=== PATIENT | male | born 1980 | race Two or more races ===

== ENCOUNTER 2016-11-28 02:48 | Emergency (ER) | payer SELFPAY ==
[~2016-11-28] VITALS: Ht 188 cm; Wt 97.1 kg
--- NOTE | 2016-11-28 02:53 | PHYS DOC ---
Adult General Chief Complaint Chief Complaint: EYE PROBLEMS HPI HPI Patient is a 36 year old male who presents with left eye pain. He states it started on Sunday since been getting worse. He states he can see light and shapes but can't see fine detail. He denies any trauma to the eye. He does have a mild headache. He states earlier today after his nap his pain got worse and now an 8 out of 10. Review of Systems Review of Systems Constitutional: Denies fever or chills [] Eyes: Positive for change in visual acuity, redness, and eye pain and left eye HENT: Denies nasal congestion or sore throat [] Respiratory: Denies cough or shortness of breath [] Cardiovascular: No additional information not addressed in HPI [] GI: Denies abdominal pain, nausea, vomiting, bloody stools or diarrhea [] : Denies dysuria or hematuria [] Musculoskeletal: Denies back pain or joint pain [] Integument: Denies rash or skin lesions [] Neurologic: Denies headache, focal weakness or sensory changes [] Endocrine: Denies polyuria or polydipsia [] Current Medications Current Medications Current Medications Medications (Trade) Dose Ordered Sig/Xavier Start Time Stop Time Status Last Admin Dose Admin Acetaminophen/ Hydrocodone Bitart (Lortab 5/325) 2 tab 1X ONCE 11/28/16 03:45 11/28/16 03:46 UNV Fluorescein Sodium (Ful-Renay) 1 strip 1X ONCE 11/28/16 03:15 11/28/16 03:21 DC 11/28/16 03:12 1 STRIP Tetracaine HCl (Tetracaine) 1 drop 1X ONCE 11/28/16 03:15 11/28/16 03:21 DC 11/28/16 03:12 1 DROP Allergies Allergies Allergies Coded Allergies Type Severity Reaction Last Updated Verified Unable to Assess 11/28/16 No Physical Exam Physical Exam Constitutional: Well developed, well nourished, no acute distress, non-toxic appearance. [] HENT: Normocephalic, atraumatic, bilateral external ears normal, oropharynx moist, no oral exudates, nose normal. EYE: PERRLA, EOMI, conjunctiva erythematous in the left eye, no discharge. No corneal abrasion appreciated Neck: Normal range of motion, no tenderness, supple, no stridor. [] Cardiovascular:Heart rate regular rhythm, no murmur [] Lungs & Thorax: Bilateral breath sounds clear to auscultation [] Abdomen: Bowel sounds normal, soft, no tenderness, no masses, no pulsatile masses. [] Skin: Warm, dry, no erythema, no rash. [] Back: No tenderness, no CVA tenderness. [] Extremities: No tenderness, no cyanosis, no clubbing, ROM intact, no edema. [] Neurologic: Alert and oriented X 3, normal motor function, normal sensory function, no focal deficits noted. [] Psychologic: Affect normal, judgement normal, mood normal. [] Current Patient Data Vital Signs Vital Signs Date Time Temp Pulse Resp B/P (MAP) Pulse Ox O2 Delivery O2 Flow Rate FiO2 11/28/16 02:52 98.4 98 20 150/96 (114) 97 Room Air 98.4 EKG EKG [] Radiology/Procedures Radiology/Procedures [] Impressions: Left eye pain, blurry vision Course & Med Decision Making Course & Med Decision Making Pertinent Labs and Imaging studies reviewed. (See chart for details) Pain improved from an 8 out of 10 to a 6 out of 10 with Loulou seen. His pupils are reactive however when I shut the lights off completely to the floor seen his left pupil is approximately half the diameter of his right one, when the lights are on; they are equal round and reactive and accommodating. I do not appreciate any ulcers or corneal abrasions. When I attempted to use the Herman- Pen the first 2 readings were 6 and 12 and the third reading was 30, however do not feel that they are accurate readings. When preforming visual acuities, he can see but it is blurry and he cannot make out the numbers on the visual acuity chart. I informed the patient he needs a follow-up with the eye doctor's at 8 AM which is only approximately 4 hours from now. He is agreeable to the plan and in stable condition this time. Dragon Disclaimer Dragon Disclaimer This electronic medical record was generated, in whole or in part, using a voice recognition dictation system. Departure Departure Impression: Primary Impression: Eye pain Disposition: 01 HOME, SELF-CARE Condition: STABLE Referrals: NEEMA TIAN MD Patient Instructions: Eye - Blurred Vision Additional Instructions: You were seen tonight for your eye pain and blurry vision. I don't have all the equipment to do a complete eye exam. Your pain improved with only numbed up her eye. I do not see any abrasions or scratches on your cornea. You were given Clemons which is a narcotic pain medicine for pain. You will need to follow-up with Dr. Tian in his eye clinic. Please call his office at 8 AM and tell them you were seen in the ER and you need to be evaluated as soon as possible today for your eye pain and decreased vision. If he cannot get into them and call the emergency department back and we will help you find an eye doctor that you can see today. Problem Qualifiers Primary Impression: Eye pain Laterality: left Qualified Codes: H57.12 - Ocular pain, left eye SUZANNE BREWER MD Nov 28, 2016 02:53
[2016-11-28] MEDS ORDERED: TETRACAINE 0.5% OPHTH SOLUTION 4ML BOTTLE. OS ONE (03:15)
[2016-11-28] MEDS ORDERED: FLUORESCEIN OPHTH TEST STRIP. OS ONE (03:15)
[2016-11-28] MEDS ORDERED: HYDROcodone/APAP 5/325MG 1 TAB TABLET PO ONE (04:00)
[2016-11-28 04:22] VITALS: BP 123/81
== END 2016-11-28 04:15 | disposition home or self-care (01) ==
LOC: ER 02:48
DX: H57.12 Ocular pain, left eye (principal); R51 Headache
CPT/HCPCS: 99284

== ENCOUNTER 2018-07-11 00:25 | Emergency (ER) | payer SELFPAY ==
[~2018-07-11] VITALS: Ht 188 cm; Wt 101.6 kg
[2018-07-11 00:47] VITALS: BP 122/82
[2018-07-11] MEDS ORDERED: DEXAMETHASONE 4 MG TABLET PO ONE (01:30)
[2018-07-11] MEDS ORDERED: PRED20TA PO (01:32)
[2018-07-11] MEDS ORDERED: ALBU2.5V8 INH (01:32)
[2018-07-11] MEDS ORDERED: AZIT250T PO (01:32)
--- NOTE | 2018-07-11 01:33 | PHYS DOC ---
Past Medical History Past Medical History: Bronchitis, DVT Additional Past Medical Histor: CHRONIC BILAT LE EDEMA Past Surgical History: Other Additional Past Surgical Histo: VEIN SUGERY X4 "CLEAN ARTERIES" Alcohol Use: Occasionally Drug Use: None Adult General Chief Complaint Chief Complaint: COUGH HPI HPI 37 y/o male presents with 4 day history of productive cough with yellow mucus and associated nasal congestion and sore throat. Denies known sick contacts. Denies trauma. Denies smoking. Review of Systems Review of Systems Constitutional: Denies fever or chills [] Eyes: Denies change in visual acuity, redness, or eye pain [] HENT: Reports nasal congestion and sore throat [] Respiratory: Reports cough; denies shortness of breath [] Cardiovascular: Denies chest pain or palpitations GI: Denies abdominal pain, nausea, vomiting, or diarrhea [] : Denies dysuria or hematuria [] Musculoskeletal: Denies back pain or joint pain [] Integument: Denies rash or skin lesions [] Neurologic: Denies headache, focal weakness or sensory changes [] Complete systems were reviewed and found to be within normal limits, except as documented in this note. Current Medications Current Medications Current Medications Medications (Trade) Dose Ordered Sig/Xavier Start Time Stop Time Status Last Admin Dose Admin Dexamethasone (Decadron) 10 mg 1X ONCE 07/11/18 01:30 07/11/18 01:31 DC 07/11/18 01:32 10 MG Allergies Allergies Allergies Coded Allergies Type Severity Reaction Last Updated Verified No Known Drug Allergies 11/28/16 No Physical Exam Physical Exam Constitutional: Well developed, well nourished, no acute distress, non-toxic appearance. [] HENT: Normocephalic, atraumatic, bilateral TMs normal, oropharynx moist, nasal congestion noted Eyes: Conjunctiva normal, no discharge. [] Neck: Normal range of motion, no tenderness, supple Cardiovascular: Heart rate regular rhythm, no murmur [] Lungs & Thorax: Bilateral breath sounds clear to auscultation; no rales/wheezing/rhonchi Skin: Warm, dry, no erythema Extremities: No tenderness, ROM intact, no edema. [] Neurologic: Alert and oriented X 3, no focal deficits noted. [] Psychologic: Affect normal, judgement normal, mood normal. [] Current Patient Data Vital Signs Vital Signs Date Time Temp Pulse Resp B/P (MAP) Pulse Ox O2 Delivery O2 Flow Rate FiO2 07/11/18 00:47 97.7 62 22 122/82 (95) 100 Room Air 97.7 EKG EKG [] Radiology/Procedures Radiology/Procedures 2 view CXR: No acute process noted (preliminary interpretation by ED physician) Course & Med Decision Making Course & Med Decision Making Pertinent Imaging studies reviewed. (See chart for details) Patient presents with HPI and physical exam consistent for acute bronchitis. CXR without acute process. Symptomatic treatment provided. Patient stable for discharge home with outpatient follow-up with PCP. Discussed findings and plan with patient and family, who acknowledge understanding and agreement. Dragon Disclaimer Dragon Disclaimer This electronic medical record was generated, in whole or in part, using a voice recognition dictation system. Departure Departure Impression: Primary Impression: Bronchitis Disposition: HOME, SELF-CARE Condition: STABLE Referrals: NO PCP (PCP) Patient Instructions: Acute Bronchitis, [id number] Additional Instructions: Wait 48 hours: if symptoms improved then do NOT fill prescription for antibiotics. If symptoms become worse or for continued fever > 100.4, then start antibiotics. Scripts Codeine Phosphate/Guaifenesin (Guaifen-Codeine 200-20 mg/10Ml) 10 Ml Liquid 10 ML PO Q6HRS PRN for COUGH, #200 LIQUID Prov: JAREK PEREZ DO 07/11/18 Azithromycin (ZITHROMAX) 250 Mg Tablet 1 PKG PO UD, #6 TAB Take 2 tablets on day 1 and then 1 tablet each day for the next 4 days as directed Prov: JAREK PEREZ DO 07/11/18 Albuterol Sulfate (Proair Hfa) 8.5 Gm Hfa.aer.ad 1 PUFF INH PRN Q6HRS PRN for SHORTNESS OF BREATH, #1 INHALER Prov: JAREK PEREZ DO 07/11/18 Prednisone (PREDNISONE) 20 Mg Tablet 2 TAB PO DAILY, #8 TAB Start tomorrow, Sunday07/12/18 Prov: JAREK PEREZ DO 07/11/18 JAREK PEREZ DO Jul 11, 2018 01:33
[2018-07-11] MEDS ORDERED: CODE10LI PO (01:40)
[2018-07-11] MEDS ORDERED: fentaNYL PF VIAL 100 MCG/2 ML VIAL IV ONE (02:00)
--- NOTE | 2018-07-11 07:51 | RAD ---
CHEST PA LATERAL History: left hip pain due to fall yesterday Comparison: None Findings: The cardiomediastinal silhouette is normal. Pulmonary vasculature is normal. The lungs are clear. No pleural effusion or pneumothorax is seen. There is no acute bone abnormality. IMPRESSION: No acute cardiopulmonary process. Electronically signed by: Baldo Hernandez MD (07/11/2018 7:48 AM) [facility]
== END 2018-07-11 02:08 | disposition home or self-care (01) ==
LOC: ER 00:25
DX: J40 Bronchitis, not specified as acute or chronic (principal); Z86.718 Personal history of other venous thrombosis and embolism
CPT/HCPCS: 71046; 99284; J8540